=== PATIENT | female | born 1940 | race Two or more races ===

== ENCOUNTER 2023-12-30 16:35 | Inpatient (IN) | payer OTHER ==
[~2023-12-30] VITALS: Ht 152.4 cm; Wt 66.6 kg
[2023-12-30 16:55] VITALS: PULSE 102; RESP 18; O2SAT 97
[2023-12-30 18:08] LABS: Hematocrit 38.1 % (36.0-46.0); Hemoglobin 12.5 g/dL (12.2-16.2); Mean Corpuscular Hemoglobin 28.3 pg (28.0-32.0); Mean Corpuscular Hgb Conc. 32.9 g/dL (32.0-36.0); Mean Corpuscular Volume 86.1 fL (80.0-100.0); Red Blood Cells 4.42 10^6/uL (4.0-5.20); Red Cell Distribution Width 16.1 % (11.8-14.3); White Blood Cell 12.9 10^3/uL (4.4-10.8)
[2023-12-30 18:12] LABS: Alanine Aminotransferase 240 U/L (7-40); Albumin 3.8 g/dL (3.2-4.8); Alkaline Phosphatase 177 U/L (46-116); Anion Gap 10 (5-15); Aspartate Aminotransferase 211 U/L (13-40); BUN/Creatinine Ratio 45.9 (10.0-20.0); Basophils % (manual) 0 (0.0-2.0); Blast Cells 0; Blood Urea Nitrogen 45 mg/dL (9-23); Calcium 9.1 mg/dL (8.5-10.1); Carbon Dioxide 22 mmol/L (20-30); Chloride 106 mmol/L (98-107); Eosinophils % (manual) 0 (0-7); Glucose 171 mg/dL (74-106); Magnesium 1.7 mg/dL (1.6-2.6); Metamyelocytes % 0; Myelocytes % 0; Potassium 4.3 mmol/L (3.5-5.1); Promyelocytes % 0; Reactive Lymphocytes 0; Sodium 138 mmol/L (136-145)
[2023-12-30 18:13] LABS: Bilirubin, Total 1.3 mg/dL (0.2-1.0); Total Protein 6.4 g/dL (5.7-8.2)
[2023-12-30] MEDS: ACETAMINOPHEN 325 MG TAB PO ONE (18:24)
[2023-12-30 19:05] LABS: Band Neutrophils % (manual) 4; Lymphocytes % (manual) 6 (10.0-50.0)
[2023-12-30 19:06] LABS: Monocytes % (manual) 2 (0-12)
[2023-12-30 19:07] LABS: Anisocytosis Slight; Platelet Estimate Decreased
[2023-12-30 19:33] LABS: Rapid Influenza A Negative (Negative); Rapid Influenza B Negative (Negative)
[2023-12-30 19:34] LABS: Urine Bacteria MANY /hpf (None Seen); Urine Blood TRACE /uL (Negative); Urine Clarity Clear (Clear); Urine Color Yellow (Yellow); Urine Mucus FEW (None Seen); Urine Protein, UAD 2+ (Negative); Urine Specific Gravity 1.021 (1.001-1.035); Urine Sperm PRESENT /hpf (None Seen); Urine Urobilinogen Normal (Negative); Urine WBC 5 /hpf (0 - 5); Urine pH 5.5 (5.0-9.0)
[2023-12-30 19:34] LABS: COVID19 ANTIGEN SOFIA FIA NEGATIVE (NEGATIVE)
[2023-12-30 19:45] LABS: Lactic Acid w/Reflex 4.4 mmol/L (0.4-2.0)
[2023-12-30] MEDS: SODIUM CHLORIDE 0.9% 1,350 ML IV ONE (21:58)
[2023-12-30] MEDS: PIPERACILLIN-TAZO 4.5GM 100 ML IV ONE (22:00)
[2023-12-30] MEDS ORDERED: METF-372 PO (22:12)
[2023-12-30] MEDS ORDERED: ESCI1TAB36 PO (22:12)
[2023-12-30] MEDS ORDERED: DEXTROSE (50%) 50ML SYRG IV PRN (22:15)
[2023-12-30] MEDS ORDERED: DOCUSATE SOD 100 MG CAP PO PRN (22:15)
[2023-12-30] MEDS ORDERED: ACETAMINOPHEN 325 MG TAB PO PRN (22:15)
[2023-12-30] MEDS ORDERED: NITROGLYCERIN 0.4 MG SL TAB SL PRN (22:15)
[2023-12-30] MEDS ORDERED: MORPHINE SULFATE INJ 2 MG/ml SYRG IV PRN (22:15)
[2023-12-30] MEDS: ASPirin-EC 325mg tab PO ONE (23:45)
[2023-12-31] MEDS: VANCOMYCIN 1GM/200ML 200 ML IV ONE (00:39)
[2023-12-31] MEDS: SODIUM CHLORIDE 0.9% 1,000 ML IV SCH (01:30)
[2023-12-31 03:47] LABS: Basophils # (auto) 0 10 ^3/uL (0-0.2); Basophils % (auto) 0.3 % (0.0-2.0); Eosinophils # (auto) 0 10 ^3/uL (0-0.8); Eosinophils % (auto) 0.3 % (0.0-7.0); Hematocrit 30.1 % (36.0-46.0); Hemoglobin 9.8 g/dL (12.2-16.2); Lymphocytes # (auto) 1.9 10 ^3/uL (0.4-5.4); Lymphocytes % (auto) 14.5 % (10.0-50.0); Mean Corpuscular Hemoglobin 28.2 pg (28.0-32.0); Mean Corpuscular Hgb Conc. 32.7 g/dL (32.0-36.0); Mean Corpuscular Volume 86.1 fL (80.0-100.0); Monocytes # (auto) 0.6 10 ^3/uL (0-1.3); Monocytes % (auto) 4.9 % (0.0-12.0); Neutrophils # (auto) 10.4 10 ^3/uL (1.6-8.6)
[2023-12-31 04:11] LABS: Alanine Aminotransferase 166 U/L (7-40); Alkaline Phosphatase 137 U/L (46-116); Amylase 59 U/L (30-118); Anion Gap 9 (5-15); Aspartate Aminotransferase 119 U/L (13-40); Bilirubin, Total 1.1 mg/dL (0.2-1.0); Blood Urea Nitrogen 38 mg/dL (9-23); Calcium 8.3 mg/dL (8.7-10.4); Carbon Dioxide 22 mmol/L (20-30); Chloride 108 mmol/L (98-107); Glucose 243 mg/dL (74-106); Potassium 3.9 mmol/L (3.5-5.1); Sodium 139 mmol/L (136-145); Total Protein 5.5 g/dL (5.7-8.2)
[2023-12-31] MEDS: ACCU-CHEK COMFORT CURVE STRIP VI SCH (06:21)
[2023-12-31] MEDS: InsuLIN REG 1unit/0.01ml Soln (100units/ml) SC SCH ×2 (06:35→22:00)
[2023-12-31] MEDS: cefTRIAXone 1GM/50ML D5W 50 ML IV SCH (08:46)
[2023-12-31] MEDS: CITALOPRAM HYDROBR 20 MG TAB PO SCH (09:15)
[2023-12-31] MEDS ORDERED: PATIENTS OWN MEDICATION (Escitalopram Oxalate 1 TAB) PO SCH (10:00)
[2023-12-31] MEDS: ONDANSETRON HCL 4 MG/2 ML VIAL IV PRN (10:05)
[2023-12-31 10:07] VITALS: RESP 16; O2SAT 97
[2023-12-31] MEDS: INSULIN LANTUS (GLARGINE) 1 /0.01ml (100units/ml) SC ONE (10:30)
[2023-12-31] MEDS: PIPERACILLIN-TAZOB 3.375GM 100 ML IV SCH (11:18)
[2023-12-31] MEDS: metroNIDAZOLE 500MG/100ML 100 ML IV SCH (11:18)
[2023-12-31 11:28] LABS: Thyroid Stimulating Hormone 1.5 uIU/mL (0.55-4.78)
[2023-12-31 12:21] LABS: Lactic Acid w/Reflex 2.2 mmol/L (0.4-2.0)
[2023-12-31] MEDS: ENOXAPARIN SOD 30 MG/0.3 ML SYRINGE SC ONE (12:45)
[2023-12-31 19:25] VITALS: RESP 16; O2SAT 97
[2024-01-01 04:16] LABS: Basophils # (auto) 0 10 ^3/uL (0-0.2); Basophils % (auto) 0.5 % (0.0-2.0); Eosinophils # (auto) 0.1 10 ^3/uL (0-0.8); Eosinophils % (auto) 0.6 % (0.0-7.0); Hematocrit 31.9 % (36.0-46.0); Hemoglobin 10.7 g/dL (12.2-16.2); Lymphocytes # (auto) 1.5 10 ^3/uL (0.4-5.4); Lymphocytes % (auto) 17.7 % (10.0-50.0); Mean Corpuscular Hemoglobin 28.4 pg (28.0-32.0); Mean Corpuscular Hgb Conc. 33.7 g/dL (32.0-36.0); Mean Corpuscular Volume 84.2 fL (80.0-100.0); Monocytes # (auto) 0.5 10 ^3/uL (0-1.3); Monocytes % (auto) 5.8 % (0.0-12.0); Neutrophils # (auto) 6.6 10 ^3/uL (1.6-8.6); Neutrophils % (auto) 75.4 % (37.0-80.0); Nucleated Red Blood Cells % 0.1 %; Red Blood Cells 3.79 10^6/uL (4.0-5.20); White Blood Cell 8.7 10^3/uL (4.4-10.8)
[2024-01-01 04:36] LABS: Alanine Aminotransferase 111 U/L (7-40); Alkaline Phosphatase 156 U/L (46-116); Anion Gap 6 (5-15); Aspartate Aminotransferase 45 U/L (13-40); BUN/Creatinine Ratio 33.8 (10.0-20.0); Blood Urea Nitrogen 26 mg/dL (9-23); Calcium 8.5 mg/dL (8.5-10.1); Carbon Dioxide 24 mmol/L (20-30); Chloride 109 mmol/L (98-107); Glucose 188 mg/dL (74-106); Magnesium 1.8 mg/dL (1.6-2.6); Potassium 3.9 mmol/L (3.5-5.1); Sodium 139 mmol/L (136-145)
[2024-01-01 04:37] LABS: Bilirubin, Total 0.8 mg/dL (0.2-1.0); Total Protein 5.7 g/dL (5.7-8.2)
[2024-01-01 04:41] LABS: Albumin 3.3 g/dL (3.2-4.8)
[2024-01-01] MEDS: diphenhdrAMINE HCL 50 MG/1 ML VL IV ONE (04:41)
[2024-01-01 07:30] VITALS: RESP 16; O2SAT 97
[2024-01-01] MEDS ORDERED: INSULIN LANTUS (GLARGINE) 1 /0.01ml (100units/ml) SC SCH (10:00)
[2024-01-01] MEDS ORDERED: ENOXAPARIN SOD 30 MG/0.3 ML SYRINGE SC SCH (10:00)
[2024-01-01] MEDS: LORazepam 2MG/ML-1ML VIAL IV PRN (11:34)
[2024-01-01 13:00] VITALS: BP 167/58; PULSE 67; RESP 18; TEMP 97.2; O2SAT 97
[2024-01-01 17:00] VITALS: BP 153/61; PULSE 68; RESP 16; TEMP 98.4; O2SAT 94
[2024-01-01 20:00] VITALS: PULSE 63; PULSE 65; RESP 18; O2SAT 94
[2024-01-01 21:00] VITALS: BP 135/81; PULSE 63; RESP 18; TEMP 98.8; O2SAT 94
[2024-01-02] VITALS (7 sets, daily range): BP systolic 146–177; BP diastolic 48–65; PULSE 56–76; RESP 18–20; TEMP 98–99.6; O2SAT 94–97
[2024-01-02 06:00] LABS: Basophils # (auto) 0 10 ^3/uL (0-0.2); Basophils % (auto) 0.4 % (0.0-2.0); Eosinophils # (auto) 0.1 10 ^3/uL (0-0.8); Eosinophils % (auto) 1.1 % (0.0-7.0); Hematocrit 29.9 % (36.0-46.0); Hemoglobin 9.8 g/dL (12.2-16.2); Lymphocytes # (auto) 1.8 10 ^3/uL (0.4-5.4); Lymphocytes % (auto) 23.1 % (10.0-50.0); Mean Corpuscular Hemoglobin 27.6 pg (28.0-32.0); Mean Corpuscular Hgb Conc. 32.7 g/dL (32.0-36.0); Mean Corpuscular Volume 84.3 fL (80.0-100.0); Monocytes # (auto) 0.4 10 ^3/uL (0-1.3); Monocytes % (auto) 5.2 % (0.0-12.0); Neutrophils # (auto) 5.4 10 ^3/uL (1.6-8.6); Neutrophils % (auto) 70.2 % (37.0-80.0); Nucleated Red Blood Cells % 0.1 %; Red Blood Cells 3.54 10^6/uL (4.0-5.20); Red Cell Distribution Width 15.9 % (11.8-14.3); White Blood Cell 7.7 10^3/uL (4.4-10.8)
[2024-01-02 06:16] LABS: Alanine Aminotransferase 60 U/L (7-40); Albumin 2.8 g/dL (3.2-4.8); Alkaline Phosphatase 134 U/L (46-116); Anion Gap 4 (5-15); Aspartate Aminotransferase 16 U/L (13-40); BUN/Creatinine Ratio 21.5 (10.0-20.0); Blood Urea Nitrogen 14 mg/dL (9-23); Calcium 8.1 mg/dL (8.7-10.4); Carbon Dioxide 24 mmol/L (20-30); Chloride 112 mmol/L (98-107); Glucose 131 mg/dL (74-106); Lipase 39 U/L (12-53); Magnesium 1.7 mg/dL (1.6-2.6); Potassium 3.6 mmol/L (3.5-5.1); Sodium 140 mmol/L (136-145)
[2024-01-02 06:17] LABS: Bilirubin, Total 0.6 mg/dL (0.2-1.0); Total Protein 5.1 g/dL (5.7-8.2)
[2024-01-03] VITALS (8 sets, daily range): BP systolic 123–193; BP diastolic 36–98; PULSE 60–75; RESP 17–20; TEMP 97.8–98.4; O2SAT 94–98
[2024-01-03 06:35] LABS: Basophils # (auto) 0 10 ^3/uL (0-0.2); Basophils % (auto) 0.7 % (0.0-2.0); Eosinophils # (auto) 0.1 10 ^3/uL (0-0.8); Eosinophils % (auto) 2.1 % (0.0-7.0); Hematocrit 31.2 % (36.0-46.0); Hemoglobin 10.4 g/dL (12.2-16.2); Lymphocytes # (auto) 1.9 10 ^3/uL (0.4-5.4); Mean Corpuscular Hemoglobin 27.9 pg (28.0-32.0); Mean Corpuscular Hgb Conc. 33.4 g/dL (32.0-36.0); Mean Corpuscular Volume 83.7 fL (80.0-100.0); Monocytes # (auto) 0.4 10 ^3/uL (0-1.3); Monocytes % (auto) 6.3 % (0.0-12.0); Neutrophils # (auto) 4.4 10 ^3/uL (1.6-8.6); Neutrophils % (auto) 63.9 % (37.0-80.0); Nucleated Red Blood Cells % 0.1 %; Red Blood Cells 3.72 10^6/uL (4.0-5.20); Red Cell Distribution Width 15.5 % (11.8-14.3); White Blood Cell 6.9 10^3/uL (4.4-10.8)
[2024-01-03 06:46] LABS: Alanine Aminotransferase 40 U/L (7-40); Albumin 2.9 g/dL (3.2-4.8); Alkaline Phosphatase 145 U/L (46-116); Anion Gap 5 (5-15); Aspartate Aminotransferase 11 U/L (13-40); BUN/Creatinine Ratio 16.1 (10.0-20.0); Bilirubin, Total 0.7 mg/dL (0.2-1.0); Blood Urea Nitrogen 10 mg/dL (9-23); Calcium 8.1 mg/dL (8.5-10.1); Carbon Dioxide 25 mmol/L (20-30); Chloride 111 mmol/L (98-107); Glucose 123 mg/dL (74-106); Potassium 3.4 mmol/L (3.5-5.1); Sodium 141 mmol/L (136-145); Total Protein 5.1 g/dL (5.7-8.2)
[2024-01-03 07:12] LABS: INR 1.09 (0.9-1.15); Partial Thromboplastin Time 27.6 SEC (24.5-34.5); Prothrombin Time 11.5 sec (9.3-11.8)
[2024-01-03] MEDS: LACTULOSE 20Gm/30ML SOLN PO SCH (10:00)
[2024-01-03] MEDS ORDERED: POTASSIUM CHL 20MEQ/100ML 100 ML IV ONE (10:15)
[2024-01-03 10:27] LABS: Hepatitis B Surface Antigen Negative (Negative)
[2024-01-03 10:48] LABS: Hepatitis A Ab IgM Negative
[2024-01-03 10:49] LABS: Hepatitis B Core IgM Negative; Hepatitis C Antibody Negative (Negative)
[2024-01-03] MEDS ORDERED: ACET-1882 PO (16:43)
[2024-01-03] MEDS ORDERED: CEPH250C PO (16:43)
[2024-01-03] MEDS ORDERED: MET500T PO (16:43)
[2024-01-03] MEDS ORDERED: CITA-77 PO (16:43)
[2024-01-03] MEDS ORDERED: LACT10SO3 PO (16:43)
[2024-01-03] MEDS: POTASSIUM EFFERVESENT TAB 25 MEQ PO ONE (17:38)
[2024-01-03] MEDS: metroNIDAZOLE 500 MG TAB PO ONE (22:30)
[2024-01-04 01:00] VITALS: BP_SYST 182; BP_SYST 184; BP_DIAS 76; BP_DIAS 79; PULSE 62; RESP 19; TEMP 97.8; O2SAT 96
[2024-01-04] MEDS: hydrALAZINE HCL 20 MG/ML VL IV ONE (01:18)
[2024-01-04 05:00] VITALS: BP_SYST 132; BP_SYST 135; BP_DIAS 58; BP_DIAS 60; PULSE 71; RESP 16; TEMP 98.1; O2SAT 95
[2024-01-04 06:23] VITALS: BP 132/58; PULSE 71; RESP 16; TEMP 98; O2SAT 95
[2024-01-04 07:18] LABS: Anion Gap 9 (5-15); Carbon Dioxide 25 mmol/L (20-30); Chloride 106 mmol/L (98-107); Potassium 3.4 mmol/L (3.5-5.1); Sodium 140 mmol/L (136-145)
[2024-01-04 07:24] LABS: Glucose 175 mg/dL (74-106)
[2024-01-04 07:27] LABS: BUN/Creatinine Ratio 7.5 (10.0-20.0); Blood Urea Nitrogen < 5 mg/dL (9-23)
[2024-01-04 08:00] VITALS: PULSE 59; PULSE 78; RESP 16; O2SAT 97
== END 2024-01-04 09:25 | disposition hospice, home (50) | DRG 871 ==
LOC: ER 16:35 → EDBD 16:35 → TELE 22:12 → TELE-EAST 01-01 11:17
PROVIDERS: ADMIT Internal Medicine; ATTEND Internal Medicine
DX: A41.9 Sepsis, unspecified organism (principal); N17.0 Acute kidney failure with tubular necrosis; F03.94 Unspecified dementia, unspecified severity, with anxiety; N30.00 Acute cystitis without hematuria; E46 Unspecified protein-calorie malnutrition; K81.0 Acute cholecystitis; L89.152 Pressure ulcer of sacral region, stage 2; E11.9 Type 2 diabetes mellitus without complications; Z51.5 Encounter for palliative care; Z20.822 Contact with and (suspected) exposure to COVID-19; D49.0 Neoplasm of unspecified behavior of digestive system; K52.9 Noninfective gastroenteritis and colitis, unspecified; K62.89 Other specified diseases of anus and rectum; K56.41 Fecal impaction; R74.01 Elevation of levels of liver transaminase levels; D69.6 Thrombocytopenia, unspecified; K57.30 Diverticulosis of large intestine without perforation or abscess without bleeding; G96.191 Perineural cyst; Z90.49 Acquired absence of other specified parts of digestive tract; Z68.28 Body mass index [BMI] 28.0-28.9, adult; L89.109 Pressure ulcer of unspecified part of back, unspecified stage
CPT/HCPCS: 36415; 71045; 74176; 76705; 80048; 80053; 80074; 81001; 82150; 82248; 82306; 82378; 82607; 82962; 83036; 83605; 83615; 83690; 83735; 84075; 84443; 84484; 85007; 85025; 85027; 85610; 85730; 86301; 86304; 87040; 87077; 87081; 87086; 87186; 87426; 87804; 93005; 99291; G0378; J1815; J2405; J2543; J3480; J3490